=== PATIENT | female | born 1930 | race Caucasian/White ===

== ENCOUNTER 2016-06-20 10:33 | Day surgery (SDC) | payer OTHER ==
[~2016-06-20 10:33] MED LIST: ASPI1TAB91 PO; CARD240C6 PO; DIAZ2 PO; DICL1GEL TOPICAL; LISI10TA3 PO; METO50TA PO; [UNRECOGNIZED DRUG - CODE] PO
[2016-06-20 11:06] VITALS: BP 187/119; PULSE 122; RESP 18; TEMP 98.1; O2SAT 98
[2016-06-20] MEDS ORDERED: DIGO0.12 PO (11:06)
[2016-06-20] MEDS ORDERED: CYTO5TAB PO (11:06)
[2016-06-20] MEDS ORDERED: SODIUM BICARBONATE 100 MEQ in D5W 1000 ML IV SCH (11:15)
[2016-06-20] MEDS ORDERED: POVIDONE IODINE 5% (ANTISEPSIS KIT) 4 APPLICATIONS EACH NARE PRN (11:15)
[2016-06-20] MEDS ORDERED: METOPROLOL TARTRATE 25 MG TAB PO PRN (11:15)
[2016-06-20] MEDS ORDERED: INSULIN HUMAN REGULAR 1,000 UNITS/10 ML VIAL SQ PRN (11:15)
[2016-06-20] MEDS ORDERED: SODIUM CHLORID 0.9% 500 ML IV PRN (11:15)
[2016-06-20] MEDS ORDERED: CHLORHEXIDINE GLUCONATE 2 % 1 PACK (2 CLOTHS) TOPICAL PRN (11:15)
[2016-06-20] MEDS ORDERED: LACTATED RINGER'S 1000 ML IV PRN (11:15)
[2016-06-20 11:24] LABS: AUTOMATED NEUTROPHIL # 5.6 TH/MM3 (1.8-7.7); BASOPHIL % 0.6 % (0.0-2.0); EOSINOPHIL # 0.2 TH/MM3 (0-0.4); EOSINOPHIL % 2.2 % (0.0-4.0); HEMATOCRIT 40.6 % (35.0-46.0); HEMO FLAGS DIFF FINAL; LYMPH % 15.3 % (9.0-44.0); LYMPHOCYTE # 1.1 TH/MM3 (1.0-4.8); MEAN CELL VOLUME 85.5 FL (80.0-100.0); MEAN CORPUSCULAR HGB CONC 32.8 % (32.0-36.0); MONO % 6.3 % (0.0-8.0); NEUT % 75.6 % (16.0-70.0); PLATELET COUNT 159 TH/MM3 (150-450); RED BLOOD COUNT 4.75 MIL/MM3 (4.00-5.30); RED CELL DISTRIBUTION WIDTH 14.9 % (11.6-17.2); WHITE BLOOD COUNT 7.4 TH/MM3 (4.0-11.0)
[2016-06-20 11:35] LABS: PROTHROMBIN TIME - PATIENT 11.3 SEC (9.8-11.6)
[2016-06-20 11:48] LABS: BICARBONATE 29.4 MEQ/L (21.0-32.0); POTASSIUM 3.9 MEQ/L (3.5-5.1)
[2016-06-20] MEDS ORDERED: HEPARIN-NS/PF INJ 500 ML ONE (12:10)
[2016-06-20] MEDS ORDERED: HEPARIN SODIUM - IV 10,000 UNITS/10 ML VIAL ONE (12:38)
[2016-06-20] MEDS ORDERED: CLOPIDOGREL 75 MG TAB ONE (13:08)
--- NOTE | 2016-06-20 13:24 | HHI.PR ---
Immediate Post Op Note Procedure Date: Jun 20, 2016 Pre Op Diagnosis: PAD, R LE claudication Post Op Diagnosis: PAD, R LE claudication Surgeon: Raul Tran Sergeant Of Officers(s): none Procedure: Aortogram w/ R LE angiogram R SFA TRACK WALKER (5mm) Findings: 1. RIGHT renal artery stenosis 2. R distal SFA occlusion, recanalized and TRACK WALKER with 5mm 3. 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
[2016-06-20] MEDS ORDERED: CLOPIDOGREL 75 MG TAB PO ONE (13:30)
--- NOTE | 2016-06-20 14:03 | PD.VS.PN ---
Subjective Subjective/Hospital Course Pt s/p R LE SFA MATTRESS PACKER, feels well, Groin ok. No apparent procedural complications. Objective Vitals/I&O Date Time Temp Pulse Resp B/P Pulse Ox O2 Delivery O2 Flow Rate FiO2 06/20/16 11:06 98.1 122 18 187/119 98 Physical Exam L groin soft, no ecchymoses R foot warm. Laboratory Laboratory Tests Test 06/20/16 11:00 White Blood Count 7.4 Red Blood Count 4.75 Hemoglobin 13.3 Hematocrit 40.6 Mean Corpuscular Volume 85.5 Mean Corpuscular Hemoglobin 28.0 Mean Corpuscular Hemoglobin 32.8 Concent Red Cell Distribution Width 14.9 Platelet Count 159 Mean Platelet Volume 10.4 Neutrophils (%) (Auto) 75.6 Lymphocytes (%) (Auto) 15.3 Monocytes (%) (Auto) 6.3 Eosinophils (%) (Auto) 2.2 Basophils (%) (Auto) 0.6 Neutrophils # (Auto) 5.6 Lymphocytes # (Auto) 1.1 Monocytes # (Auto) 0.5 Eosinophils # (Auto) 0.2 Basophils # (Auto) 0.0 CBC Comment DIFF FINAL Differential Comment Prothrombin Time 11.3 Prothromb Time International 1.0 Ratio Sodium Level 142 Potassium Level 3.9 Chloride Level 106 Carbon Dioxide Level 29.4 Anion Gap 7 Blood Urea Nitrogen 18 Creatinine 1.00 Estimat Glomerular Filtration 53 Rate Random Glucose 93 Calcium Level 9.2 Assessment and Plan Plan D/c after 4h BR. Plavix load and plavix daily. RTC 1m - I will call her tomorrow with appt. Raul Tran MD Jun 20, 2016 14:03
[2016-06-20] MEDS ORDERED: METOPROLOL TARTRATE 5 MG/5 ML VIAL IV PUSH PRN (14:15)
[2016-06-20] MEDS ORDERED: IOHEXOL 350 MG/ML 100 ML BTL (for Cath Lab) OTHER ONE (14:28)
[2016-06-22] MEDS ORDERED: CLOPIDOGREL 75 MG TAB PO SCH (09:00)
--- NOTE | 2016-06-22 11:43 | MP ---
cc: RACH TRAN MD DATE OF SURGERY: 06/20/2016 PREOPERATIVE DIAGNOSIS Peripheral arterial occlusive disease, right lower extremity claudication. POSTOPERATIVE DIAGNOSIS Peripheral arterial occlusive disease, right lower extremity claudication. PROCEDURE 1. Aortogram with right lower extremity angiogram. 2. Right SFA angioplasty, 5 mm. 3. Left common femoral artery Angio-Seal. ATTENDING SURGEON Rach Tran ANESTHESIA Local. INDICATION Ms. Martinez is an 86-year-old lady with short distance right lower extremity claudication. She is taken to the operating room for angiographic evaluation and treatment. There is no pre-operative imaging available for my review. DESCRIPTION OF PROCEDURE Informed consent was obtained from the patient. She was taken to the operating room and placed supine on the operating table. An appropriate timeout was taken to ensure the patient's identity, operative site and planned procedure. Antibiotics were not necessary as this is a clean procedure without planned implantation of any foreign object. Everyone in the room agreed with the timeout and we proceeded. Her bilateral groins were prepped and draped and the left groin was anesthetized with 1% lidocaine. A 21-gauge micropuncture needle was used to access the left common femoral artery. This was exchanged using a Seldinger technique for a micropuncture sheath through which a 0.035 Glidewire was introduced. The micropuncture sheath was exchanged for a 4-Irish sheath and a VCF catheter was placed over the wire into the sheath and then the aortogram and pelvic arteriograms obtained. The Glidewire was reintroduced and navigated down to the right common femoral artery. The VCF catheter was advanced over this and a right lower extremity arteriogram was obtained. The patient was systemically heparinized with 5000 units of IV heparin. A 0.035 Carreno wire was introduced through the VCF catheter and passed down to the mid SFA on the right hand side. The VCF catheter and 4-Irish sheath were removed and a 6-Irish, 55 cm sheath was introduced. A CXI catheter was placed over the wire and through the sheath and the wire was exchanged for a 0.014 TRANSFORMER INSPECTOR wire. Using the TRANSFORMER INSPECTOR wire and CXI catheter we navigated across most of the occluded artery but were unable to traverse into the popliteal artery itself. The TRANSFORMER INSPECTOR wire was then exchanged for a Glidewire and using the curvature of the Glidewire we were able to navigate into the distal popliteal artery. This was confirmed angiographically and the Glidewire was exchanged for a Carreno. The CXI catheter was removed and the entire area was angioplastied with a 5 mm balloon. The completion angiogram showed excellent result without any recoil extravasation and only a ovr-bsxx-qwyilkxw dissection. The wire, catheter and sheath were removed and the groin was closed with an Angio-Seal. There were no complications. I was present and scrubbed and performed the entire procedure. INTERPRETATION OF IMAGES The patient has a patent left renal artery and a high-grade stenosis of the right renal artery that is nonofficial. Her infrarenal artery is patent. The common iliac arteries, external iliac arteries and hypogastric artery are patent. The right common femoral artery, profunda and SFA are patent. The SFA distally is occluded and it reconstitutes via profunda and SFA collaterals to the mid popliteal artery. The anterior tibial artery is the dominant runoff to the foot. After recanalization of the SFA there is only a deo-tync-dxnzoseq dissection that does not appear significant and excellent AT runoff to the foot at which point reconstitutes a posterior tibial as well. MD ESTUARDO Baldwin/JON /1:49 PM /11:25 AM MTDSun
== END 2016-06-20 17:45 | disposition home or self-care (01) ==
LOC: HDOC 10:33 → HDIC 10:34 → HDOC 17:45
PROVIDERS: ATTEND Surgery
DX: I70.211 Atherosclerosis of native arteries of extremities with intermittent claudication, right leg (principal); I77.1 Stricture of artery; I77.89 Other specified disorders of arteries and arterioles; I73.9 Peripheral vascular disease, unspecified; I70.1 Atherosclerosis of renal artery
CPT/HCPCS: 36252; 37224; 75710; 80048; 85025; 85610; C1725; C1769; C1887; C1893; G0269; J1644; Q9967

== ENCOUNTER 2016-11-28 09:16 | Day surgery (SDC) | payer OTHER ==
[~2016-11-28] VITALS: Ht 154.9 cm; Wt 62.8 kg
[~2016-11-28 09:16] MED LIST changes: -ASPI1TAB91 PO; -CARD240C6 PO; +CYTO5TAB PO; -DIAZ2 PO; -DICL1GEL TOPICAL; +DIGO0.12 PO; -LISI10TA3 PO; -METO50TA PO; -[UNRECOGNIZED DRUG - CODE] PO
[2016-11-28] MEDS ORDERED: IOHEXOL 350 MG/ML 100 ML BTL (for Cath Lab) OTHER ONE (09:17)
--- NOTE | 2016-11-28 09:52 | PD.VS.PN ---
Pre-operative Note Pre-operative diagnosis: LLE claudication Planned procedure: Aortogram w/ L LE angiogram Interval History: Pt has persistent L LE pain but no tissue loss Labs: pending Blood: none needed Imaging: to be made in OR Orders: NPO Post-operative destination: DOCU Operative site marked: Yes Consent: Informed consent has been obtained from Lisa Martinez. I have explained the procedure in detail and discussed the risks, benefits, and potential complications. All questions have been answered. Raul Tran MD Nov 28, 2016 09:52
[2016-11-28 09:53] VITALS: BP 162/115; PULSE 90; RESP 18; TEMP 97.5; O2SAT 98
[2016-11-28] MEDS ORDERED: METO50TA PO (10:00)
[2016-11-28] MEDS ORDERED: LIOT50 PO (10:00)
[2016-11-28] MEDS ORDERED: TIRO25CA PO (10:00)
[2016-11-28] MEDS ORDERED: HEPARIN-NS/PF INJ 1,000 ML ONE (10:02)
[2016-11-28] MEDS ORDERED: MIDAZOLAM HCL 2 MG/2 ML VIAL ONE (10:02)
[2016-11-28 10:24] LABS: AUTOMATED NEUTROPHIL # 5.9 TH/MM3 (1.8-7.7); BASOPHIL # 0.1 TH/MM3 (0-0.2); BASOPHIL % 1.1 % (0.0-2.0); EOSINOPHIL # 0.2 TH/MM3 (0-0.4); EOSINOPHIL % 2.7 % (0.0-4.0); HEMATOCRIT 46.9 % (35.0-46.0); HEMO FLAGS DIFF FINAL; LYMPH % 15.3 % (9.0-44.0); LYMPHOCYTE # 1.2 TH/MM3 (1.0-4.8); MEAN CELL VOLUME 87.2 FL (80.0-100.0); MEAN CORPUSCULAR HEMOGLOBIN 27.9 PG (27.0-34.0); MEAN CORPUSCULAR HGB CONC 32.1 % (32.0-36.0); MONO % 6.2 % (0.0-8.0); NEUT % 74.7 % (16.0-70.0); PLATELET COUNT 172 TH/MM3 (150-450); RED BLOOD COUNT 5.38 MIL/MM3 (4.00-5.30); RED CELL DISTRIBUTION WIDTH 17.6 % (11.6-17.2); WHITE BLOOD COUNT 7.9 TH/MM3 (4.0-11.0)
[2016-11-28] MEDS ORDERED: HEPARIN SODIUM - IV 10,000 UNITS/10 ML VIAL ONE (10:25)
[2016-11-28] MEDS ORDERED: ceFAZolin INJ 1,000 MG VIAL ONE (10:39)
[2016-11-28 10:44] LABS: POTASSIUM 4.6 MEQ/L (3.5-5.1)
--- NOTE | 2016-11-28 11:25 | HHI.PR ---
Immediate Post Op Note Procedure Date: Nov 28, 2016 Pre Op Diagnosis: LLE Claudication, PAD Post Op Diagnosis: LLE Claudication, PAD Surgeon: Raul Tran Finish Repairer(s): none Procedure: 1. Aortogram w/ L LE angiogram 2. L SFA MANAGER RETAIL SALES/stent (6x80) 3. L popliteal MANAGER RETAIL SALES (DCB 4x100) 4. L AT MANAGER RETAIL SALES (3x120) 5. R OUTSIDE SALES ENGINEER Angioseal Findings: 1. Occluded distal SFA with popliteal island 2. Proximal AT occlusion 3. Successful recanalization 4. Palpable DP at conclusion of case Estimated blood loss: 10mL Anesthesia: MAC Drains: None Patient to: Other (DOCU) Patient Condition: Good Implant/Devices: SEE IMPLANT LOG (if applicable) Date/Time of Procedure: SEE SURGICAL CARE RECORD Raul Tran MD Nov 28, 2016 11:25
[2016-11-28] MEDS ORDERED: CLOPIDOGREL 75 MG TAB PO ONE (12:30)
[2016-11-28] MEDS: METOPROLOL TARTRATE 5 MG/5 ML VIAL IV PUSH PRN ×2 (12:30→13:45)
--- NOTE | 2016-11-29 07:22 | MP ---
cc: RAUL TRAN MD DATE OF SURGERY 11/28/2016 PREOPERATIVE DIAGNOSIS Left lower extremity claudication. Peripheral arterial occlusive disease. POSTOPERATIVE DIAGNOSIS Left lower extremity claudication. Peripheral arterial occlusive disease. PROCEDURE 1. Aortogram with lower extremity angiogram. 2. Left SFA angioplasty and stent. 3. Left popliteal artery angioplasty with a 4-mm drug-coated balloon. 4. Left anterior tibial artery angioplasty with 3-mm balloon. 5. Right common femoral artery AngioSeal. SURGEON Raul Tran MD RESIDENT SURGEON None. ANESTHESIA Local with sedation. INDICATIONS Ms. Martinez is an 86-year lady who has claudication which is lifestyle-limiting. She is taken to the operating room for angiographic evaluation and treatment. There is no prior cath or imaging available for my review. DESCRIPTION OF PROCEDURE Informed consent was obtained from the patient. She was taken to the operating room and placed supine on the operating room table. An appropriate time-out was taken to insure the identify of the patient, the operative site and the planned procedure. The administration of 1 gram of Kefzol was initiated prior to stenting and will be discontinued after a single preoperative dose. Everyone in the room agreed with the time-out and we proceeded. Her bilateral groins were prepped and draped and the right groin was anesthetized with 1% lidocaine. A 21-gauge micropuncture needle was used to access the right common femoral artery. This was exchanged using Seldinger technique through the micropuncture sheath through which a 0.035 Glidewire was introduced. The micropuncture sheath was exchanged for a 4-Tristanian sheath and a VCF catheter was placed over the wire into the sheath and aortogram and pelvic arteriograms obtained. The Glidewire was re-introduced and navigated down to the left common femoral artery and the VCF catheter was advanced over this and left lower extremity arteriogram was obtained. The patient was systemically heparinized with 5000 units of IV heparin. A 0.035 Carreno wire was introduced down to the distal SFA and the VCF catheter and 4-Tristanian sheath were removed and a 6-Tristanian, 55-cm Ansell sheath was introduced. A CXI catheter was placed over the wire and through the sheath and the Carreno wire was exchanged for a OCULAR CARE AIDE wire. Using the Carreno and OCULAR CARE AIDE, we were able to navigate past the SFA occlusion into the popliteal artery and the catheter was advanced over the wire and angiographically confirmed we were indeed in the true lumen. The entire area was then angioplastied with a 5-mm balloon and the completion angiogram showed a significant-appearing dissection and this was treated with a 6-mm stent that was post-dilated to 5 mm. The completion angiograms showed excellent result and no recoil or extravasation. The OCULAR CARE AIDE wire was then re-introduced and recanalized the distal popliteal artery and down to the takeoff of the anterior tibial artery. The CXI catheter was advanced over this and then we switched the OCULAR CARE AIDE wire for a Glidewire and this was used to navigate down to the mid-anterior tibial artery and the catheter was advanced over this. The OCULAR CARE AIDE wire was then reintroduced and used as a rail and the entire anterior tibial artery and popliteal artery were balloon angioplastied with a 3-mm balloon. The completion angiogram showed residual stenosis in the popliteal artery and this was dilated with a 4-mm drug-coated balloon. The completion angiogram showed excellent result, without any recoil or extravasation. There was a zun-zofu-xfqyhggx dissection in the middle of the popliteal artery and there was no embolic complications. The wire, catheter and sheath were removed and groin was closed with an AngioSeal. There were no complications. I was present and scrubbed and performed the entire procedure. INTERPRETATION OF IMAGES The patient has patent infrarenal aorta, common iliac arteries and external iliac arteries bilaterally, none of which have any hemodynamically significant stenosis. The right renal artery has a high-grade stenosis. The left common femoral artery and profunda are patent. The proximal SFA is patent. The distal SFA is occluded. There is a popliteal island and then all three tibial vessels were occluded. The anterior tibial artery reconstitutes via cheryl-geniculate collaterals. After angioplasty of the SFA there is yarsanism of the in-line flow to the popliteal artery but there is a significant dissection that was treated with self-expanding stent. After recanalizing and popliteal artery and proximal anterior tibial artery there is a significant dissection of the popliteal artery and this was treated with a 4-mm drug-coated balloon. After all these endovascular interventions were performed, the patient had in-line flow down to the distal catheter and a nice palpable pulse on the top of the foot. MD ESTUARDO Baldwin/SSB /9:42 PM /6:32 AM
== END 2016-11-28 14:30 | disposition home or self-care (01) ==
LOC: HCAT 09:16 → HDIC 09:17 → HCAT 14:30
PROVIDERS: ATTEND Surgery
DX: I73.9 Peripheral vascular disease, unspecified (principal); I70.212 Atherosclerosis of native arteries of extremities with intermittent claudication, left leg
CPT/HCPCS: 37226; 37228; 75710; 80048; 85025; C1725; C1751; C1760; C1769; C1876; C1893; G0269; J0690; J1644; J2250; J3010; 37224; 37232; Q9967

== ENCOUNTER 2017-06-11 13:08 | Day surgery (SDC) | payer OTHER ==
[~2017-06-11] VITALS: Ht 157.5 cm; Wt 56.8 kg
[~2017-06-11 13:08] MED LIST changes: -CYTO5TAB PO; -DIGO0.12 PO; +LIOT50 PO; +METO50TA PO; +TIRO25CA PO
[2017-06-11] MEDS ORDERED: IOHEXOL 350 MG/ML 50 ML BTL (for Cath Lab) OTHER ONE (13:09)
[2017-06-11] MEDS ORDERED: DILT60TA33 PO (13:32)
[2017-06-11] MEDS ORDERED: CIPR-9 PO (13:32)
[2017-06-11] MEDS ORDERED: LEVO750T3 PO (13:32)
[2017-06-11] MEDS ORDERED: magnesium PO (13:33)
[2017-06-11] MEDS ORDERED: VITACAP7 PO (13:33)
[2017-06-11] MEDS ORDERED: VITA250T3 PO (13:33)
[2017-06-11] MEDS ORDERED: COQ-30CA2 P-ARTICULR (13:33)
[2017-06-11 13:55] VITALS: BP 208/113; PULSE 90; RESP 18; TEMP 97.9; O2SAT 94
[2017-06-11] MEDS ORDERED: SODIUM BICARBONATE 100 MEQ in D5W 1000 ML IV SCH (14:00)
[2017-06-11 14:23] LABS: BICARBONATE 29.4 MEQ/L (21.0-32.0); CALCIUM 9.6 MG/DL (8.5-10.1); CREATININE 1.49 MG/DL (0.50-1.00)
--- NOTE | 2017-06-11 14:43 | PD.VS.PN ---
Pre-operative Note Pre-operative diagnosis: L LE ischemia, PAD Planned procedure: Aortogram w/ L LE angiogram possible L LE endovascular intervention Interval History: Pt has been feeling well and no changes that would preclude OR. Labs: Laboratory Results Test 06/11/17 13:54 Anion Gap 7 MEQ/L (5-15) Blood Urea Nitrogen 21 MG/DL (7-18) Creatinine 1.49 MG/DL (0.50-1.00) Random Glucose 108 MG/DL (74-106) Calcium Level 9.6 MG/DL (8.5-10.1) Sodium Level 140 MEQ/L (136-145) Potassium Level 4.0 MEQ/L (3.5-5.1) Chloride Level 104 MEQ/L (98-107) Carbon Dioxide Level 29.4 MEQ/L (21.0-32.0) Blood: none needed Imaging: will make in OR Orders: NPO Post-operative destination: DOCU Operative site marked: Yes Consent: Informed consent has been obtained from Lisa Martinez. I have explained the procedure in detail and discussed the risks, benefits, and potential complications. All questions have been answered. Patient contact information: Family [phone] Raul Tran MD Jun 11, 2017 14:43
[2017-06-11] MEDS ORDERED: MIDAZOLAM HCL 2 MG/2 ML VIAL ONE (14:49)
[2017-06-11] MEDS ORDERED: HEPARIN-NS/PF FLUSH BAG 1,000 ML IV FLUSH ONE (14:49)
[2017-06-11] MEDS ORDERED: HEPARIN SODIUM - IV 10,000 UNITS/10 ML VIAL ONE (14:50)
[2017-06-11] MEDS ORDERED: LIDOCAINE HCL 1% PF 30 ML VIAL ONE (14:50)
[2017-06-11] MEDS ORDERED: hydrALAZINE HCL 20 MG/ML VIAL ONE (14:58)
--- NOTE | 2017-06-11 15:15 | HHI.PR ---
cc: Raul Tran MD Immediate Post Op Note Procedure Date: Jun 11, 2017 Pre Op Diagnosis: L LE PAD, tissue loss Post Op Diagnosis: L LE PAD, tissue loss Surgeon: Raul Tran Manifold Operator(s): none Procedure: L LE angiogram Findings: occluded distal SFA, popliteal artery occluded AT/PT Peroneal runoff to DP Complications: none Specimen(s) removed: none R LOGISTICS TEAM LEADER 4F sheath removed in OR Estimated blood loss: 10mL Anesthesia: MAC Drains: None Patient to: Other (DOCU) Patient Condition: Good Date/Time of Procedure: SEE SURGICAL CARE RECORD Raul Tran MD Jun 11, 2017 15:15
--- NOTE | 2017-06-11 15:30 | CATHPROC ---
[employer] HIS Report Study Information Study Number Admission Scheduled Start Study Start [id number] Jun 11 2017 1:08PM 06/11/2017 Jun 11 2017 2:42PM [place] Service Cath Endovascular Study Admit Source Facility Department Other [facility] - Engineering Illustrator Physician and Clinical Staff Initial MD Tran, Raul Armor Reconnaissance Specialist Paola Trevizo,SAE Other Israel Abel,RT(R) Recorder Kelly Velásquez RCIS TECH2 Scrub Davis Ferraro,RT(R) Procedures Performed Procedure Location (Site) Vessel Name Angiogram (manual) Fem Sup. (left) Femoral Art Angiogram (manual) Peroneal (left) Popliteal Angiogram (manual) Popliteal L (L10) Popliteal Angiogram (manual) Tib, Ant. (left) Popliteal Wire insertion Fem Art (right) Femoral Art Equipment Time Content Curator Description Size Mfg Part Number Used/Scraped [id number] 15:02 ANGIO-DYNAMICS OMNI FLUSH 65CM CATHETER FR 4 Used *[id number] INTRODUCER SET, 14:49 [employer] FR 5 [id number] *[id number] Used MICROPUNCTURE STIFF [id number] 14:49 [employer]Settle PACK, CCL CUSTOM * Used *[id number] TUBING, PRESSURE INJECTION [id number] 14:49 NAMIC PACER 72" Used 72" *[id number] 14:49 NYCOMED OMNIPAQUE, 300 MG, 150ML 150ML [id number] Used 14:49 NYCOMED OMNIPAQUE, 300 MG, 50ML 50ML [id number] Used [id number] 14:49 SPANGLER MEDICAL BLANKET,WARM AIR CCL * Used *[id number] 15:01 TERUMO MEDICAL SHEATH, FR4 TERUMO (10CM) FR 4 Used *[id number] CATHETER, FR4 GUIDE ANGLED 15:04 TERUMO MEDICAL/BLUE FR 4 [id number] *[id number] Used 120CM WIRE, ANGLED GLIDE .035 [id number] 14:49 TERUMO MEDICAL/BLUE 260CM Used 260CM *[id number] History: Current Medications Medication Dosage/Unit Route Frequency Last Date/Time Taken LOPRESSOR Synthroid CARDIZEM History: Allergies Allergy Reaction aspirin UPSET STOMACH History: Risk Factors Family History of Hypertension Dyslipidemia Previous UT Previous Heart Failure Premature CAD Yes Yes No No No Prior Valve Prior PCI Prior CABG Surgery No No No Cerebrovascular Peripheral Artery Chronic Lung On Dialysis Diabetes Disease Disease Disease No No Yes No No History: Other Current Smoker No Medication Medication Total Dose (Bolus/Oral) Medication Total Dosage/Unit 1% XYLOCAINE 20 mL FENTANYL 25 mcg HYDRALAZINE 20 mg VERSED 1 mg Medications (Bolus/Oral) Medication Time Given Dosage/Unit Administered By Reason 1% XYLOCAINE 06/11/2017 2:57:07 PM 20 mL Raul Tran 20 mL 1% XYLOCAINE given in lab by Raul Tran in Right Groin via Subcutaneous. VERSED 06/11/2017 2:57:31 PM 1 mg Adamy, Paola 1 mg VERSED given in lab by Paola Trevizo RN in Left Hand via Peripheral IV. Ordered by Kaylie Tran. FENTANYL 06/11/2017 2:57:53 PM 25 mcg Adamy, Paola 25 mcg FENTANYL given in lab by Paola Trevizo RN in Left Hand via Peripheral IV. Ordered by Raul Tran. HYDRALAZINE 06/11/2017 3:00:02 PM 10 mg Adamy, Paola 10 mg HYDRALAZINE given in lab by Paola Trevizo RN in Left Hand via Peripheral IV. Ordered by Raul Sanchez. HYDRALAZINE 06/11/2017 3:14:37 PM 10 mg Adamy, Paola 10 mg HYDRALAZINE given in lab by Paola Trevizo RN in Left Hand via Peripheral IV. Ordered by Raul Sanchez. Medication (Drip) Medication Time Given Dosage/Unit Concentration/Unit Diluent (ml) Solution IV Solutions 06/11/2017 2:42:54 PM 0 mL (IV) 500 NaCl .9 Patient arrived on IV Solutions in Left Hand via Peripheral IV. Pump/Drip Flow = 20 ml/hr using NaCl .9. Initial Case Assessment Cardiovascular HR Rhythm NIBP Chest Pain 96 afib 194/95 0 Circulatory - Right Pulses Femoral 3 Scale (0,1,2,3,4,d) Circulatory - Left Pulses Femoral 2 Scale (0,1,2,3,4,d) Neurological State Oriented to time-place- Alert Moves all extremities person Respiration - General Respiration Rate SpO2 (%) (B/min) 17 98 Final Case Assessment Cardiovascular HR Rhythm NIBP Chest Pain 115 afib 154/106 0 Circulatory - Right Pulses Femoral 3 Scale (0,1,2,3,4,d) Circulatory - Left Pulses Femoral 2 Scale (0,1,2,3,4,d) Neurological State Oriented to time-place- Alert Moves all extremities person Respiration - General Respiration Rate SpO2 (%) (B/min) 19 99 Chronological Log Time Study Chronological Log 14:42:22 MD arrived. 14:42:45 Patient arrived via Bed. 14:42:46 Patient Name, D.O.B, / Armband Verified By R.N. 14:42:47 Consent signed by the physician and the patient and verified by the Engineering Illustrator staff. 14:42:48 Pre-op and post- op instructions given; patient acknowledges understanding of instructions. 14:42:49 Verbal Stimulation=2 Physical Stimulation=2 Airway=2 Respiration=2 TOTAL=8. (0=absent, 1=li mited, 2=present) 14:42:50 Presedation assessment performed by Engineering Illustrator RN. 14:42:51 Patient has been NPO for More than 6Hrs. 14:42:52 Skin Breakdown-LLE ulceration wounds noted on ankle, calf, and torres. Inner ankle ulcer note d on RLE. 14:42:53 Randy Prominences Protected 14:42:54 A # 22 IV was noted in the Hand (left). Grade = 0 14:42:54 Patient arrived on IV Solutions in Left Hand via Peripheral IV. Pump/Drip Flow = 20 ml/hr u sing NaCl .9. 14:42:56 History and physical on the chart or being dictated. Vitals capture started with the following parameters, Patient=Adult, Interval=5 min, Initial Pr gdgjdk=497 mmHg, 14:48:04 Deflation Rate=5 mmHg, Cuff placed on Right Ankle 14:49:19 NI=937 bpm, JSTB=195/95 mmhg, SpO2=98.0 %, Resp=15 B/min, Angelian=10 14:51:24 Reference ECG taken Assessment: Initial Case, HR=96 BPM, Rhythm=afib, CJOX=934/95 mmhg, Chest Pain=0 Right Pulses: Femoral=3 14:53:10 Left Pulses: Femoral=2 Neurological: State=Alert, Ox3, HEREDIA Respiration: Resp=17 B/min, SpO2=98 % 14:53:52 RP=203 bpm, JUAM=408/117 mmhg, SpO2=99.0 %, Resp=18 B/min Time Out. Correct patient, correct procedure, correct physician, power injector not used/loaded with contrast with 14:56:28 surgical team present. Time Out Concurred by MD and individual staff in procedure. Time Out #2 - Consents verified, patient in correct position, all results are labled and displa yed, safety precautions 14:56:29 taken, antibiotics administered. Time out concurred by MD, individual staff and BARREL RACER. 14:57:05 Case Start 14:57:07 20 mL 1% XYLOCAINE given in lab by Raul Tran in Right Groin via Subcutaneous. 14:57:31 1 mg VERSED given in lab by Paola Trevizo RN in Left Hand via Peripheral IV. Ordered by Raul Tran. 14:57:53 25 mcg FENTANYL given in lab by Paola Trevizo, SAE in Left Hand via Peripheral IV. Ordered by Raul Tran. 14:58:53 QF=293 bpm, QLGZ=074/114 mmhg, SpO2=98.0 %, Resp=16 B/min, Angelina=10 14:59:48 Access site was Right Femoral Artery. A INTRODUCER SET, MICROPUNCTURE STIFF FR 5 was advanced into the Fem Art (right) using the Perc utaneous 14:59:56 technique. 15:00:02 10 mg HYDRALAZINE given in lab by Paola Trevizo, SAE in Left Hand via Peripheral IV. Order ed by Raul Tran. 15:00:25 A WIRE, ANGLED GLIDE .035 260CM 260CM was inserted via Fem Art (right). A SHEATH, FR4 TERUMO (10CM) FR 4 was exchanged in the Fem Art (right). This was necessary in or andrea to 15:00:38 accomodate a larger catheter. A OMNI FLUSH 65CM CATHETER FR 4 was advanced over a wire. OMNIPAQUE, 300 MG, 50ML 50ML was used for 15:01:33 injections. 15:03:52 QC=580 bpm, LAXC=573/101 mmhg, SpO2=95 %, Resp=20 B/min 15:04:33 [place] wire advanced up and over to the left iliac. After removing the current catheter a CATHETER, FR4 GUIDE ANGLED 120CM FR 4 was advanced over a WIRE, 15:04:37 ANGLED GLIDE .035 260CM 260CM. 15:05:36 Wire removed 15:05:59 Fem Sup. (left) angiogram, manually injected. 15:06:42 Fem Sup. (left) angiogram, manually injected. 15:06:50 Popliteal L (L10) angiogram, manually injected. 15:07:31 Tib, Ant. (left) angiogram, manually injected. 15:08:51 FN=931 bpm, MRJM=373/99 mmhg, SpO2=99.0 %, Resp=19 B/min 15:10:09 Peroneal (left) angiogram, manually injected. 15:11:06 Catheter was removed w/o difficulty 15:11:47 Case End 15:13:29 Sheath removed; pressure applied to access site. 15:13:48 YG=774 bpm, PFVZ=248/111 mmhg, SpO2=98.0 %, Resp=19 B/min 15:14:37 10 mg HYDRALAZINE given in lab by Paola Trevizo, SAE in Left Hand via Peripheral IV. Orde red by Raul Tran. 15:18:49 HA=435 bpm, HAMU=694/99 mmhg, SpO2=98.0 %, Resp=20 B/min 15:23:42 EJ=871 bpm, BOHF=574/106 mmhg, SpO2=98.0 %, Resp=19 B/min 15:24:53 Hemostasis obtained. 15:25:09 Sterile dressing applied to site 15:25:15 No case complications noted. 15:25:16 Cine recording checked. 15:25:18 Bedside Report will be given. Assessment: Final Case, GQ=606 BPM, Rhythm=afib, DIBR=827/106 mmhg, Chest Pain=0 Right Pulses: Femoral=3 15:25:21 Left Pulses: Femoral=2 Neurological: State=Alert, Ox3, HEREDIA Respiration: Resp=19 B/min, SpO2=99 % 15:27:03 Vitals capture stopped. 15:29:07 Patient moved to bed 15:29:09 Patient transported to DOCU. End Study - Contrast Media Used In Study Contrast Total Opened (mL) Total Used (mL) Total Wasted (mL) Omnipaque 25 25 0 End Study - Radiation Exposure Fluoro Time (minutes) 3.7 End Study - Sheaths Sheaths Pulled By Sheath Hold Time (min) Davis Ferraro End Study - Patient Disposition Complications Transferred To Interventional Outcome No Outpatient Bed No attempt made
[2017-06-11] MEDS ORDERED: DILTIAZEM HCL 60 MG TAB PO ONE (16:00)
--- NOTE | 2017-06-11 16:09 | MP ---
cc: Raul Tran MD DATE OF OPERATION: 06/11/2017 PREOPERATIVE DIAGNOSES: 1. Left lower extremity tissue loss. 2. Peripheral vascular disease. POSTOPERATIVE DIAGNOSES: 1. Left lower extremity tissue loss. 2. Peripheral vascular disease. PROCEDURE PERFORMED: Left lower extremity angiogram. ATTENDING SURGEON: Raul Tran MD FURNACE LINER: None. ANESTHESIA: Local sedation. INDICATIONS FOR PROCEDURE: Ms. Martinez is an 87-year-old lady with left lower extremity tissue loss and nonpalpable pulses. She was taken to the operating room for angiographic evaluation and treatment. There was no prior catheter-based imaging available for my review since her tissue loss. Everyone in the room agreed with the timeout and we proceeded. DESCRIPTION OF PROCEDURE: Her bilateral groins were prepped and draped. The right groin was anesthetized with 1% lidocaine. A 21-gauge micropuncture needle was used to access the right common femoral artery. This was exchanged using Seldinger technique for a micropuncture sheath, through which a 0.035 Glidewire was introduced and the micropuncture sheath were exchanged for a 4-[place] sheath. A VCF catheter was placed over the wire and through the sheath and the wire and catheter were navigated down to the left common femoral artery. Left lower extremity arteriogram was obtained. The catheter and sheath were removed and pressure held for hemostasis. There were no complications. I was present and scrubbed for the entire procedure. INTERPRETATION OF IMAGES: The patient has a patent left common femoral artery, superficial femoral artery proximally and profunda femoris. The mid-SFA occludes. The popliteal artery is occluded. The posterior tibial artery and anterior tibial arteries are occluded. The peroneal artery constitutes via profunda based collaterals in the proximal calf and then gives rise to dorsalis pedis artery in the foot. MD ESTUARDO Baldwin/SHARON , 03:25 PM , 04:08 PM
[2017-06-11] MEDS ORDERED: MORPHINE SULFATE 4 MG/ML INJ ONE (17:34)
[2017-06-11] MEDS ORDERED: MORPHINE SULFATE 2 MG/ML SYRINGE IV ONE (18:15)
[2017-06-12] MEDS ORDERED: MAGN400T24 PO (10:29)
[2017-06-12] MEDS ORDERED: MAGN200T PO (10:30)
== END 2017-06-11 18:16 | disposition home or self-care (01) ==
LOC: HCAT 13:08 → HDIC 13:08 → HCAT 18:16
PROVIDERS: ATTEND Surgery
DX: I73.9 Peripheral vascular disease, unspecified (principal); I50.9 Heart failure, unspecified; L97.529 Non-pressure chronic ulcer of other part of left foot with unspecified severity
CPT/HCPCS: 36246; 75710; 80048; 99152; C1769; C1887; C1893; J0360; J1644; J2250; J2270; J3010; Q9967